=== PATIENT | male | born 1970 | race Caucasian/White ===

== ENCOUNTER 2017-03-01 20:36 | Emergency (ER) | payer OTHER ==
[~2017-03-01] VITALS: Ht 170.2 cm; Wt 83.0 kg
[~2017-03-01 20:36] MED LIST: CYCL1PAK PO; NAPR-571 PO; TRAM50TA PO
[2017-03-01 20:38] VITALS: BP 127/73; PULSE 99; RESP 15; TEMP 99.2; O2SAT 99
[2017-03-01] MEDS ORDERED: IBUP800T23 PO (20:58)
[2017-03-01] MEDS ORDERED: HYDR-3533 PO (20:58)
[2017-03-01] MEDS ORDERED: AUGM875T3 PO (20:58)
[2017-03-01] MEDS ORDERED: AMPICILLIN-SULBACTAM INJ 3 GM in SODIUM CHLORIDE 0.9% INJ 100 ML IV ONE (21:00)
[2017-03-01] MEDS ORDERED: TETANUS/DIPHTHERIA TOXOID ADULT 0.5 ML VIAL IM ONE (21:00)
--- NOTE | 2017-03-01 21:28 | PD ---
HPI Chief Complaint: Bite or Sting Time Seen by Provider: 21:23 Travel History International Travel<30 days: No Contact w/Intl Traveler<30days: No Traveled to known affect area: No History of Present Illness HPI 46-year-old [id number] male presents to emergency department for evaluation of dog bite. 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 He was bitten by his dog during a training exercise. She was bitten in his left bicep as well as his left thumb. He denies any numbness or tingling. Pain is mild. He states that he cleanse the wound with peroxide at the scene. He has not had a tetanus shot over 5 years. Pain is mild. Worse with bending and movement. No other injury PFSH Past Medical History Medical History: Denies Significant Hx Diminished Hearing: No Immunizations Current: Yes Tetanus Vaccination: > 5 Years Influenza Vaccination: No Past Surgical History Narrative Surgical Umbilical herniorrhaphy Other Surgery: Yes (hernia) Social History Alcohol Use: Yes (socially) Tobacco Use: No Substance Use: No Allergies-Medications (Allergen,Severity, Reaction): Coded Allergies: No Known Allergies (Verified , 03/01/17) Reported Meds & Prescriptions Reported Meds & Active Scripts Active Ibuprofen 800 Mg Tab 800 Mg PO Q8H PRN Augmentin (Amoxicillin-Clavulanate) 875-125 Mg Tab 1 Tab PO BID Lortab (Hydrocodone-Acetaminophen) 5-325 Mg Tab 1 Tab PO Q8HR PRN Review of Systems Except as stated in HPI: all other systems reviewed are Neg Physical Exam Narrative GENERAL: Well-developed, well-nourished in no apparent distress. Nontoxic appearing. HEAD: Normocephalic, atraumatic. EYES: Pupils equal round and reactive. Extraocular motions intact. No scleral icterus. No injection or drainage. ENT: Nose clear. Throat without erythema, tonsillar hypertrophy or exudate. Uvula midline. Airway patent. NECK: Trachea midline. Supple, nontender, moves head freely. No central bony tenderness or spasm. CARDIOVASCULAR: Regular rate and rhythm without murmurs, gallops, or rubs. RESPIRATORY: Clear to auscultation. Breath sounds equal bilaterally. No wheezes , rales, or rhonchi. GASTROINTESTINAL: Abdomen soft, non-tender, nondistended. No hepato-splenomegaly , or palpable masses. No guarding. EXTREMITIES: No clubbing, cyanosis, or edema. No joint tenderness. Examination of the left upper extremity reveals tooth abrasions around the biceps both medial as well as to the anterior surface in a bite keo pattern. There is a single tooth puncture wound goes into the muscle belly. There is some mild muscle bleeding. No obvious hematoma. Patient's able to extend and flex his arm at the elbow without difficulty. He has good strength although it does elicit pain. He has a tooth puncture to the volar pad of the left thumb distal phalanx. This does not appear to be in the bone or the nailbed. He is a little flex and extend his thumb. He has intact sensation. These lacerations do not appear to go into the bone or tendon. He is neurovascularly intact. BACK: Nontender without deformity. No flank tenderness. NEUROLOGICAL: Awake, alert and oriented x 3 .Cranial nerves grossly intact. Motor and sensory grossly within normal limits. Normal speech. Data Data Last Documented VS Vital Signs Date Time Temp Pulse Resp B/P Pulse Ox O2 Delivery O2 Flow Rate FiO2 03/01/17 20:38 99.2 99 15 127/73 99 Room Air Orders Iv Access Insert/Monitor (03/01/17 20:56) Tetanus/Diphtheria Tox Adult (Tetanus/Di (03/01/17 21:00) Ampicillin-Sulbactam Inj (Unasyn Inj) (03/01/17 21:00) MDM Medical Decision Making Medical Screen Exam Complete: Yes Emergency Medical Condition: Yes Medical Record Reviewed: Yes Differential Diagnosis MDM: High Differential diagnoses: Fracture, sprain, strain, dislocation, contusion, neurovascular injury, dog bite Narrative Course Patient's given 3 g of Unasyn IV. Tetanus immunization updated. His wounds are scrubbed and cleansed by the nursing staff. Dressing is applied. Sutures are not indicated. This is dog bite left biceps and left thumb Diagnosis Primary Impression: dog bite left biceps and left thumb Patient Instructions: General Instructions Additional Instructions: Rest. Elevation. Daily wound care with soap, water, Neosporin. Augmentin, Motrin and Lortab. Light-duty 10 days. Recheck with a primary care doctor or the ER in the next 2-3 days. Med/Other Pt SpecificInfo: Prescription(s) given, Wound Care Scripts Ibuprofen 800 Mg [id number] Mg PO Q8H PRN (Pain/Inflammation) #30 TAB Prov:Jeremy Matute MD 03/01/17 Amoxicillin-Clavulanate (Augmentin)875-125 Mg Tab1 Tab PO BID #10 TAB Ref 0 Prov:Jeremy Matute MD 03/01/17 Hydrocodone-Acetaminophen (Lortab)5-325 Mg Tab1 Tab PO Q8HR PRN (PAIN) #12 TAB Prov:Jeremy Matute MD 03/01/17 Disposition: 01 DISCHARGE HOME Condition: Stable Cameron Bedoya Mar 01, 2017 21:28
== END 2017-03-01 22:31 | disposition home or self-care (01) ==
LOC: NEPK 20:36
DX: S41.132A Puncture wound without foreign body of left upper arm, initial encounter (principal); S61.032A Puncture wound without foreign body of left thumb without damage to nail, initial encounter; Z23 Encounter for immunization; W54.0XXA Bitten by dog, initial encounter; Y93.89 Activity, other specified; Y92.9 Unspecified place or not applicable
CPT/HCPCS: 90471; 90714; 96365; 99284; J0295